=== PATIENT | male | born 1975 ===

== ENCOUNTER 2020-04-09 12:21 | Emergency (ER) | payer SELFPAY ==
[2020-04-09] MEDS ORDERED: ONDANSETRON 4 MG/2 ML INJ IM ONE (14:49)
[2020-04-09] MEDS ORDERED: MORPHINE 4 MG/1 ML INJ IM ONE (14:49)
--- NOTE | 2020-04-09 14:54 | Emergency Department Report ---
ED Male HPI - General Chief complaint: Urogenital-Male Stated complaint: PENIS PAIN Time Seen by Provider: 04/09/20 14:36 Source: patient Mode of arrival: Ambulatory Limitations: No Limitations - History of Present Illness Initial comments: Patient is 44 years old male with no significant past medical history. Patient presented to the ER complaining of right testicular pain and swelling. Patient describes his pain as dull and aching, 7 out of 10 radiated to his right groin area and to the right flank area. Patient stated that pain started 3 days ago. Patient denied any fever or chills. Patient stated that sometimes he will have some burning sensation when he is urinate but is not a lot. He denied any penile discharge. MD Complaint: testicle pain, testicle swelling -: days(s) (3) Location: right testicle Radiation: other (right flank) Severity scale (0 -10): 7 Quality: sharp Consistency: intermittent - Related Data Allergies Allergy/AdvReac Type Severity Reaction Status Date / Time Penicillins Allergy Unknown Verified 04/09/20 12:50 ED Review of Systems ROS: Stated complaint: PENIS PAIN Other details as noted in HPI Comment: All other systems reviewed and negative Constitutional: denies: chills, fever ENT: denies: throat pain Respiratory: denies: shortness of breath Cardiovascular: denies: chest pain, palpitations Gastrointestinal: denies: abdominal pain, nausea, vomiting, diarrhea, constipation, hematemesis, melena, hematochezia Genitourinary: dysuria, testicular pain. denies: frequency, hematuria, discharge, testicular mass Musculoskeletal: back pain Neurological: denies: headache, weakness, numbness, paresthesias, confusion ED Past Medical Hx - Past Medical History Previous Medical History?: No - Surgical History Past Surgical History?: No ED Physical Exam - General Limitations: No Limitations General appearance: alert, in no apparent distress - Head Head exam: Present: atraumatic, normocephalic, normal inspection - Eye Eye exam: Present: normal appearance - ENT ENT exam: Present: normal exam, normal orophraynx, mucous membranes moist - Neck Neck exam: Present: normal inspection - Respiratory Respiratory exam: Present: normal lung sounds bilaterally - Cardiovascular Cardiovascular Exam: Present: regular rate, normal rhythm, normal heart sounds - GI/Abdominal GI/Abdominal exam: Present: soft, normal bowel sounds. Absent: distended, tenderness, guarding, rebound, rigid, organomegaly, mass, bruit, pulsatile mass, hernia - exam: Present: testicular tenderness, scrotal swelling. Absent: urethral di scharge External exam: Present: swelling. Absent: erythema, lesions, lacerations, ecchymosis, bleeding - Extremities Exam Extremities exam: Present: normal inspection, full ROM, normal capillary refill - Back Exam Back exam: Present: normal inspection, full ROM. Absent: CVA tenderness (R), CVA tenderness (L) - Neurological Exam Neurological exam: Present: alert, oriented X3, CN II-XII intact. Absent: motor sensory deficit - Psychiatric Psychiatric exam: Present: normal mood - Skin Skin exam: Present: warm, intact, normal color ED Course Vital Signs 04/09/20 12:51 Temperature 97.5 F L Pulse Rate 82 Respiratory 16 Rate Blood Pressure 124/69 [Right] O2 Sat by Pulse 96 Oximetry ED Medical Decision Making - Lab Data Result diagrams: 04/09/20 14:55 04/09/20 14:55 - Radiology Data Radiology results: report reviewed - Medical Decision Making Patient is 44 years old male with no significant past medical history. Patient presented to the ER complaining of right testicular pain and swelling. Patient describes his pain as dull and aching, 7 out of 10 radiated to his right groin area and to the right flank area. Patient stated that pain started 3 days ago. Patient denied any fever or chills. Patient stated that sometimes he will have some burning sensation when he is urinate but is not a lot. He denied any penile discharge. Labs reviewed and is unremarkable except for positive UTI. Testicular ultrasound showed a right epididymitis. Patient given prescription for ciprofloxacin 500 mg twice a day for 10 days and Naprosyn for pain. Patient advised to follow-up with his primary doctor in the next 2 to 3 days and to return to the ER if he develop any new symptoms. Critical care attestation.: If time is entered above; I have spent that time in minutes in the direct care of this critically ill patient, excluding procedure time. ED Disposition Clinical Impression: UTI (urinary tract infection), Epididymitis, right Disposition: DC-01 TO HOME OR SELFCARE Is pt being admited?: No Condition: Stable Instructions: Epididymitis (ED), Urinary Tract Infection in Men (ED) Referrals: TESSA KNIGHT MD [Staff Physician] - 3-5 Days Forms: STI Treatment and Prevention
[2020-04-09 15:18] LABS: Basophils # (Auto) 0.1 K/mm3 (0.0-0.1); Basophils % (Auto) 0.6 % (0.0-1.8); Eosinophils % (Auto) 0.4 % (0.0-4.3); Hematocrit 42.1 % (35.5-45.6); Hemoglobin 14.6 gm/dl (11.8-15.2); Lymphocytes % (Auto) 18.6 % (13.4-35.0); Mean Corpuscular HGB Conc 35 % (32-34); Mean Corpuscular Volume 90 fl (84-94); Monocytes # (Auto) 0.9 K/mm3 (0.0-0.8); Platelet Count 262 K/mm3 (140-440); Red Blood Count 4.69 M/mm3 (3.65-5.03); Red Cell Distribution Width 14.5 % (13.2-15.2)
[2020-04-09 15:35] LABS: BUN/Creatinine Ratio 16; Blood Urea Nitrogen 16 mg/dL (9-20); Calcium 9.2 mg/dL (8.4-10.2); Hemolysis Index 6
[2020-04-09 16:52] LABS: Bilirubin,Urine NEG (Negative); Blood,Urine NEG (Negative); Color,Urine Yellow (Yellow); Protein,Urine <15 mg/dL mg/dL (Negative); Urobilinogen,Urine < 2.0 mg/dL (<2.0)
--- NOTE | 2020-04-09 17:08 | Ultrasound Report ---
Testicular ultrasound with Doppler INDICATION: Right testicular pain and swelling FINDINGS: Right testicle measures 3.7 x 2.4 x 3.2 and the left measures 4.1 x 2.0 x 3.0 cm. Small rig ht hydrocele is identified. The right epididymis (especially the body and tail) appears slightly hete rogeneous and demonstrates relative increased flow respect to the left. IMPRESSION: Right testicular epididymitis, as above. Small right-sided hydrocele. Signer Name: Anam Thomas MD Signed: 04/09/2020 5:04 PM Workstation Name: [id number]
[2020-04-09 17:49] VITALS: BP 139/89
== END 2020-04-09 17:49 | disposition home or self-care (01) ==
LOC: ED 12:21
DX: N45.1 Epididymitis (principal); N39.0 Urinary tract infection, site not specified; Z88.0 Allergy status to penicillin
CPT/HCPCS: 36415; 80048; 81001; 85025; 87086; 93975; 96372; 99284; J2270; J2405

== ENCOUNTER 2020-07-15 01:28 | Emergency (ER) | payer SELFPAY ==
[2020-07-15 01:47] VITALS: BP 103/64
[2020-07-15] MEDS ORDERED: LIDOCAINE-MPF (1%) 10 MG/1 ML VIAL 5 ML INFILTRATI ONE (02:18)
[2020-07-15] MEDS ORDERED: KETOROLAC 30 MG/1 ML INJ IM ONE (02:18)
[2020-07-15 02:42] LABS: Bacteria,Urine 1+ /HPF (Negative); Bilirubin,Urine NEG (Negative); Blood,Urine NEG (Negative); Color,Urine Yellow (Yellow); Protein,Urine <15 mg/dL mg/dL (Negative); Urobilinogen,Urine < 2.0 mg/dL (<2.0)
--- NOTE | 2020-07-15 03:13 | Ultrasound Report ---
US testicular doppler comp INDICATION / CLINICAL INFORMATION: LEFT TESTICULAR PAIN. COMPARISON: Scrotal ultrasound 04/09/2020 FINDINGS -- RIGHT TESTIS: Size = 3.8 cm. - Appearance: No significant abnormality. - Cyst or Mass: None. - Color Doppler Flow: No significant abnormality. EPIDIDYMIS: No significant abnormality. HYDROCELE: None. VARICOCELE: None demonstrated. FINDINGS -- LEFT TESTIS: Size = 3.2 cm. - Appearance: No significant abnormality. - Cyst or Mass: None. - Color Doppler Flow: No significant abnormality. EPIDIDYMIS: No significant abnormality. HYDROCELE: Small VARICOCELE: None demonstrated. ADDITIONAL FINDINGS: None. IMPRESSION: 1. Small left hydrocele. Otherwise, no significant abnormality. Signer Name: Maximiliano Mendes MD Signed: 07/15/2020 3:08 AM Workstation Name: [id number]
--- NOTE | 2020-07-15 04:08 | Emergency Department Report ---
ED Male HPI - General Chief complaint: Urogenital-Male Stated complaint: GROIN PAIN Source: patient Mode of arrival: Ambulatory Limitations: No Limitations - History of Present Illness Initial comments: Patient is a 44-year-old male with no past medical history who presents to the ED with complaint of acute onset persistent severe left testicular pain, mild hematuria, urinary frequency and urgency and dysuria for the last 2 days. Patient states that he is not sexually active for over 1 year. Patient states that the pain has been persistent and worse with any movement. Patient states that he experienced similar symptoms about 3 or 4 months ago and was diagnosed with epididymitis and urinary tract infection. Patient states that he is here to follow-up with the urologist but has an appointment in the next 7 to 10 days. Patient denies fever, chills, nausea, vomiting, traumatic injury, heavy lifting, fall, dizziness, syncope, abdominal pain, chest pain or shortness of breath. MD Complaint: testicle pain (left), testicle swelling (left), dysuria, groin pain (left) -: Sudden, days(s) (2) Location: left testicle Severity: severe Severity scale (0 -10): 7 Quality: aching, sharp Consistency: constant Improves with: none Worsens with: palpation, movement denies other symptoms, swelling, blood in urine, dysuria. denies: discharge, mass, rash, urinary retention, fever, nausea/vomiting, incontinence - Related Data Sexually active: No Previous Rx's Medication Instructions Recorded Last Taken Type Ciprofloxacin HCl [Ciprofloxacin 500 mg PO Q12HR #20 tab 04/09/20 Unknown Rx TAB] Naproxen [Naprosyn] 500 mg PO BID #14 tablet 04/09/20 Unknown Rx Fluconazole (Nf) [Diflucan TAB] 150 mg PO ONCE #2 tablet 07/15/20 Unknown Rx Ibuprofen [Motrin] 800 mg PO Q8HR PRN #30 tablet 07/15/20 Unknown Rx levoFLOXacin [Levaquin TAB] 500 mg PO QDAY #10 tablet 07/15/20 Unknown Rx traMADoL [Ultram] 50 mg PO Q6HR PRN #12 tablet 07/15/20 Unknown Rx Allergies Allergy/AdvReac Type Severity Reaction Status Date / Time Penicillins Allergy Unknown Verified 04/09/20 12:50 ED Review of Systems ROS: Stated complaint: GROIN PAIN Other details as noted in HPI Constitutional: denies: chills, fever Eyes: denies: eye pain, eye discharge, vision change ENT: denies: ear pain, throat pain Respiratory: denies: cough, shortness of breath, wheezing Cardiovascular: denies: chest pain, palpitations Endocrine: no symptoms reported Gastrointestinal: denies: abdominal pain, nausea, diarrhea Genitourinary: urgency, dysuria, frequency, hematuria, testicular pain (left) Musculoskeletal: denies: back pain, joint swelling, arthralgia Skin: denies: rash, lesions Neurological: denies: headache, weakness, paresthesias Psychiatric: denies: anxiety, depression Hematological/Lymphatic: denies: easy bleeding, easy bruising ED Past Medical Hx - Past Medical History Previous Medical History?: No - Surgical History Past Surgical History?: No - Social History Smoking Status: Never Smoker Substance Use Type: Alcohol - Medications Home Medications: Home Medications Medication Instructions Recorded Confirmed Last Taken Type Ciprofloxacin HCl [Ciprofloxacin 500 mg PO Q12HR #20 tab 04/09/20 Unknown Rx TAB] Naproxen [Naprosyn] 500 mg PO BID #14 tablet 04/09/20 Unknown Rx Fluconazole (Nf) [Diflucan TAB] 150 mg PO ONCE #2 tablet 07/15/20 Unknown Rx Ibuprofen [Motrin] 800 mg PO Q8HR PRN #30 tablet 07/15/20 Unknown Rx levoFLOXacin [Levaquin TAB] 500 mg PO QDAY #10 tablet 07/15/20 Unknown Rx traMADoL [Ultram] 50 mg PO Q6HR PRN #12 tablet 07/15/20 Unknown Rx ED Physical Exam - General Limitations: No Limitations General appearance: alert, in no apparent distress - Head Head exam: Present: atraumatic, normocephalic, normal inspection - Eye Eye exam: Present: normal appearance, PERRL, EOMI Pupils: Present: normal accommodation - ENT ENT exam: Present: normal exam, normal orophraynx, mucous membranes moist, TM's normal bilaterally, normal external ear exam - Neck Neck exam: Present: normal inspection, full ROM - Respiratory Respiratory exam: Present: normal lung sounds bilaterally. Absent: respiratory distress, wheezes, rales, rhonchi, chest wall tenderness, accessory muscle use, decreased breath sounds, prolonged expiratory - Cardiovascular Cardiovascular Exam: Present: regular rate, normal rhythm, normal heart sounds. Absent: systolic murmur, diastolic murmur, rubs, gallop - GI/Abdominal GI/Abdominal exam: Present: soft, normal bowel sounds. Absent: distended, tenderness, guarding, hyperactive bowel sounds, organomegaly - exam: Present: normal inspection, testicular tenderness (left), circumcision. 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 Absent: tenderness, CVA tenderness (R), CVA tenderness (L), muscle spasm, paraspinal tenderness, vertebral tenderness - Neurological Exam Neurological exam: Present: alert, oriented X3, CN II-XII intact, normal gait, reflexes normal - Psychiatric Psychiatric exam: Present: normal affect, normal mood - Skin Skin exam: Present: warm, dry, intact, normal color. Absent: rash ED Course Vital Signs 07/15/20 01:43 Temperature 98.1 F Pulse Rate 78 Respiratory 18 Rate Blood Pressure 103/64 O2 Sat by Pulse 97 Oximetry ED Medical Decision Making - Radiology Data Radiology results: report reviewed, image reviewed Findings [facility] [address] [place] [address] Ultrasound Report Signed Patient: EILEEN CHAPA MR#: [id number] 2 : 1975 Acct:[id number] Age/Sex: 44 / M ADM Date: 07/15/20 Loc: ED Attending Dr: Ordering Physician: KIKO ANGEL Date of Service: 07/15/20 Procedure(s): US testicular doppler comp Accession Number(s): [id number] cc: KIKO ANGEL US testicular doppler comp INDICATION / CLINICAL INFORMATION: LEFT TESTICULAR PAIN. COMPARISON: Scrotal ultrasound 04/09/2020 FINDINGS -- RIGHT TESTIS: Size = 3.8 cm. - Appearance: No significant abnormality. - Cyst or Mass: None. - Color Doppler Flow: No significant abnormality. EPIDIDYMIS: No significant abnormality. HYDROCELE: None. VARICOCELE: None demonstrated. FINDINGS -- LEFT TESTIS: Size = 3.2 cm. - Appearance: No significant abnormality. - Cyst or Mass: None. - Color Doppler Flow: No significant abnormality. EPIDIDYMIS: No significant abnormality. HYDROCELE: Small VARICOCELE: None demonstrated. ADDITIONAL FINDINGS: None. IMPRESSION: 1. Small left hydrocele. Otherwise, no significant abnormality. Signer Name: Maximiliano Mendes MD Signed: 07/15/2020 3:08 AM Workstation Name: [id number] Transcribed By: PAMELA Dictated By: Maximiliano Mendes MD Electronically Authenticated By: Maximiliano Mendes MD Signed Date/Time: 07/15/20307 DD/ 5 TD/TT: - Medical Decision Making This is a 44-year-old male with no past medical history who presents to the ED with complaint of acute onset persistent severe left testicular pain, mild hematuria, urinary frequency and urgency and dysuria for the last 2 days. Patient states that he is not sexually active for over 1 year. Patient states that the pain has been persistent and worse with any movement. Patient states that he experienced similar symptoms about 3 or 4 months ago and was diagnosed with epididymitis and urinary tract infection. Patient states that he is here to follow-up with the urologist but has an appointment in the next 7 to 10 days. In the ED, patient is alert and oriented x3 and is not in distress. Patient was treated for pain in the ED and testicular ultrasound showed no acute abn ormalities or testicular torsion but mild hydrocele on the left testicle. Urinalysis showed significant urinary tract infection with no sign of blood in the urine. Patient was treated for pain in the ED and also treated empirically for UTI with Rocephin 1 g intramuscular injection. On reevaluation, patient's pain is well controlled with medications. Patient will discharge home on antibiotics and pain medications and advised to follow-up with the urologist Dr. Knight as previously advised. Patient was advised to return to the ED immediately if symptoms get worse. - Differential Diagnosis Testicular torsion; epididymitis; UTI; hydrocele; kidney stones; Critical care attestation.: If time is entered above; I have spent that time in minutes in the direct care of this critically ill patient, excluding procedure time. ED Disposition Clinical Impression: Acute urinary tract infection, Acute epididymitis, Liz infection of genital region Disposition: DC-01 TO HOME OR SELFCARE Is pt being admited?: No Does the pt Need Aspirin: No Condition: Stable Instructions: Epididymitis (ED), Antibiotic Medicine, Adult, [id number], Urinary Tract Infection, Adult, [id number], Testicular Self-Exam, [id number], Epididymitis Additional Instructions: Take medications with food, drink plenty of fluids and follow-up with your urologist Dr. Knight as previously scheduled. Return to the ED immediately if symptoms get worse. Prescriptions: Fluconazole (Nf) [Diflucan TAB] 150 mg PO ONCE #2 tablet levoFLOXacin [Levaquin TAB] 500 mg PO QDAY #10 tablet Ibuprofen [Motrin] 800 mg PO Q8HR PRN #30 tablet PRN Reason: Pain , Severe (7-10) traMADoL [Ultram] 50 mg PO Q6HR PRN #12 tablet PRN Reason: Pain Referrals: TESSA KNIGHT MD [Staff Physician] - 3-5 Days MARIELY KAPOOR MD [Staff Physician] - 3-5 Days Forms: STI Treatment and Prevention Time of Disposition: 04:11 Print Language: MARSHALLESE
== END 2020-07-15 04:30 | disposition home or self-care (01) ==
LOC: ED 01:28
DX: N39.0 Urinary tract infection, site not specified (principal); N45.1 Epididymitis; Z79.899 Other long term (current) drug therapy; Z88.0 Allergy status to penicillin
CPT/HCPCS: 81001; 87086; 93975; 96372; 99284; J0696; J1885